=== PATIENT | female | born 1980 | race Caucasian/White ===

== ENCOUNTER 2016-10-04 18:41 | Emergency (ER) | payer MEDICAID ==
[~2016-10-04] VITALS: Ht 165.1 cm; Wt 54.4 kg
[2016-10-04 21:41] VITALS: BP 116/60
[2016-10-04] MEDS ORDERED: CYCLOBENZAPRINE HCL 10 MG TAB PO ONE (22:15)
[2016-10-04] MEDS ORDERED: KETOROLAC TROMETH 60MG/2ML VIAL IM ONE (22:15)
== END 2016-10-04 22:48 | disposition home or self-care (01) ==
LOC: ER 19:19
DX: S13.4XXA Sprain of ligaments of cervical spine, initial encounter (principal); S43.401A Unspecified sprain of right shoulder joint, initial encounter; V49.49XA Driver injured in collision with other motor vehicles in traffic accident, initial encounter; Y93.89 Activity, other specified; Y99.9 Unspecified external cause status; Y92.89 Other specified places as the place of occurrence of the external cause
CPT/HCPCS: 36415; 72125; 73030; 84702; 96372; 99285; J1885

== ENCOUNTER 2018-08-16 11:36 | Emergency (ER) | payer SELFPAY ==
[~2018-08-16] VITALS: Ht 165.1 cm; Wt 58.1 kg
[2018-08-16 12:22] VITALS: BP 121/79
[2018-08-16] MEDS ORDERED: cefTRIAXone SOD 1,000 MG VL IM ONE (12:45)
== END 2018-08-16 12:56 | disposition home or self-care (01) ==
LOC: ER 11:41
DX: H66.92 Otitis media, unspecified, left ear (principal); K11.8 Other diseases of salivary glands
CPT/HCPCS: 96372; 99283; J0696

== ENCOUNTER 2021-03-16 11:07 | Emergency (ER) | payer MEDICAID ==
[~2021-03-16] VITALS: Ht 165.1 cm; Wt 54.4 kg
[2021-03-16 12:24] VITALS: BP 124/86
[2021-03-16] MEDS ORDERED: ACETAMINOPHEN 500 MG TAB PO ONE (13:15)
== END 2021-03-16 14:10 | disposition home or self-care (01) ==
LOC: ER 11:07
DX: M25.522 Pain in left elbow (principal); M25.521 Pain in right elbow
CPT/HCPCS: 73080